=== PATIENT | male | born 1995 | race Caucasian/White ===

== ENCOUNTER 2017-08-02 17:27 | Emergency (ER) | payer MEDICAID ==
[~2017-08-02] VITALS: Ht 162.6 cm; Wt 79.8 kg
[~2017-08-02 17:27] MED LIST: DIVA-68 PO; DIVA500T17 PO; FOLI-17 PO; LAMO100T PO; LAMO200T49 PO; PHEN64.8 PO; PHEN97.2 PO; QUET150T PO; QUET200T PO; QUET400T PO
[2017-08-02 17:30] VITALS: BP 123/71
[2017-08-02] MEDS ORDERED: IBUPROFEN 200 MG TABLET PO ONE (18:30)
== END 2017-08-02 18:25 | disposition home or self-care (01) ==
LOC: ED 18:19
DX: J15.9 Unspecified bacterial pneumonia (principal); J00 Acute nasopharyngitis [common cold]; F32.9 Major depressive disorder, single episode, unspecified
CPT/HCPCS: 71020; 99284

== ENCOUNTER 2018-07-03 15:07 | Inpatient (IN) | payer MEDICAID ==
[~2018-07-03] VITALS: Ht 162.6 cm; Wt 89.5 kg
[~2018-07-03 15:07] MED LIST changes: +DIVA-61 PO; -DIVA-68 PO
[2018-07-03] MEDS ORDERED: VITS A & D OINT 5 GM PKT TP ONE (15:31)
[2018-07-03] MEDS ORDERED: LORA-445 PO (16:05)
[2018-07-03] MEDS ORDERED: ALBU6.7H INH (16:05)
[2018-07-03] MEDS ORDERED: CYAN500T2 PO (16:05)
[2018-07-03] MEDS ORDERED: RISP2TAB3 PO (16:05)
[2018-07-03] MEDS ORDERED: CHOL200024 PO (16:05)
[2018-07-03] MEDS ORDERED: CALC-109 PO (16:05)
[2018-07-03] MEDS ORDERED: CLON1TAB4 PO (16:05)
[2018-07-03] MEDS ORDERED: ONDA4TAB13 SL (16:05)
[2018-07-03] MEDS ORDERED: IBUP-1223 PO (16:05)
[2018-07-03] MEDS ORDERED: CEFTRIAXONE 1,000 MG in SODIUM CHLORIDE 0.9% 50 ML IV ONE (16:30)
[2018-07-03] MEDS ORDERED: SODIUM CHLORIDE FLUSH 10ML SYR IVF ONE (16:30)
[2018-07-03 16:33] LABS: BASOPHILS # (AUTO) 0.03 x10^3/uL (0-0.1); BASOPHILS % (AUTO) 1 % (0-1); EOSINOPHILS # (AUTO) 0.05 x10^3/uL (0-0.4); EOSINOPHILS % (AUTO) 1 % (1-7); LYMPHOCYTES % (AUTO) 24 % (22-44); MD NO; MEAN CORPUSCULAR HEMOGLOBIN 30.9 pg (27.5-34.5); MEAN CORPUSCULAR HGB CONC 34.4 g/dL (33.2-36.2); MEAN CORPUSCULAR VOLUME 89.6 fL (81-97); MEAN PLATELET VOLUME 6.8 fL (7.4-10.4); MONOCYTES # (AUTO) 0.64 x10^3/uL (0.2-0.8); MONOCYTES % (AUTO) 9 % (2-9); NEUTROPHILS # (AUTO) 4.42 x10^3/uL (1.8-6.8); NEUTROPHILS % (AUTO) 66 % (42-75); PLATELET COUNT 232 x10^3/uL (130-400); RED BLOOD COUNT 4.88 x10^6/uL (4.38-5.82); RED CELL DISTRIBUTION WIDTH 13.9 % (9.4-14.8)
[2018-07-03] MEDS ORDERED: CEFTRIAXONE PMX 1GM/50ML 50 ML ONE (16:35)
[2018-07-03 16:46] LABS: ALANINE AMINOTRANSFERASE 24 U/L (12-78); ALBUMIN 3.9 g/dL (3.4-5.0); ANION GAP 7 mmol/L (5-15); CALCIUM 9.1 mg/dL (8.5-10.1); CHLORIDE 103 mmol/L (98-107); CREATININE 1.08 mg/dL (0.7-1.3)
[2018-07-03 16:49] LABS: ALKALINE PHOSPHATASE 54 U/L (45-117); BILIRUBIN,TOTAL 0.3 mg/dL (0.2-1.0); TOTAL PROTEIN 8.3 g/dL (6.4-8.2)
[2018-07-03] MEDS ORDERED: ONDANSETRON 2MG/ML, 2ML IVPush PRN (17:00)
[2018-07-03] MEDS ORDERED: ENALAPRILAT 1.25 MG/ML, 2ML IVPush PRN (17:00)
[2018-07-03] MEDS ORDERED: LABETALOL 5MG/ML, 20ML IVPush PRN (17:00)
[2018-07-03] MEDS ORDERED: TEMPLATE NON-FORMULARY MED. (Ondansetron** (Ondansetron Odt**) 4 MG) SL ONE (17:00)
[2018-07-03] MEDS ORDERED: BISACODYL 10 MG SUPP PR PRN (17:00)
[2018-07-03] MEDS ORDERED: ONDANSETRON ODT 4 MG PO PRN (17:00)
[2018-07-03] MEDS ORDERED: IBUPROFEN 600 MG TABLET PO PRN (17:00)
[2018-07-03] MEDS ORDERED: LORazepam 0.5MG TABLET PO PRN (17:00)
[2018-07-03] MEDS ORDERED: ACETAMINOPHEN 325 MG TABLET PO PRN (17:00)
[2018-07-03 17:53] VITALS: BP 114/73
[2018-07-03] MEDS ORDERED: ONDANSETRON MC SCH (18:00)
[2018-07-03] MEDS ORDERED: ENOXAPARIN 40 MG/0.4 ML SQ SCH (18:00)
[2018-07-03] MEDS ORDERED: LAMO200T49 PO (18:35)
[2018-07-03 19:39] VITALS: BP 121/73
[2018-07-03] MEDS ORDERED: DOCUSATE 100 MG CAPSULE PO PRN (21:00)
[2018-07-03] MEDS ORDERED: QUETIAPINE 100MG TABLET PO SCH (21:00)
[2018-07-03] MEDS: CALCIUM/VITAMIN D3 250-125 TABLET PO SCH (21:01)
[2018-07-03] MEDS ORDERED: DIVALPROEX 500 MG TAB.ER.24H PO SCH (22:00)
[2018-07-04 02:26] VITALS: BP 108/67
[2018-07-04 05:31] LABS: BASOPHILS # (AUTO) 0.02 x10^3/uL (0-0.1); BASOPHILS % (AUTO) 0 % (0-1); EOSINOPHILS # (AUTO) 0.11 x10^3/uL (0-0.4); EOSINOPHILS % (AUTO) 2 % (1-7); LYMPHOCYTES # (AUTO) 2.41 x10^3/uL (1-3.4); LYMPHOCYTES % (AUTO) 38 % (22-44); MD NO; MEAN CORPUSCULAR HEMOGLOBIN 30.5 pg (27.5-34.5); MEAN CORPUSCULAR HGB CONC 34.2 g/dL (33.2-36.2); MEAN CORPUSCULAR VOLUME 89.1 fL (81-97); MEAN PLATELET VOLUME 6.8 fL (7.4-10.4); MONOCYTES # (AUTO) 0.64 x10^3/uL (0.2-0.8); MONOCYTES % (AUTO) 10 % (2-9); NEUTROPHILS # (AUTO) 3.18 x10^3/uL (1.8-6.8); NEUTROPHILS % (AUTO) 50 % (42-75); PLATELET COUNT 218 x10^3/uL (130-400); RED BLOOD COUNT 4.98 x10^6/uL (4.38-5.82); RED CELL DISTRIBUTION WIDTH 13.8 % (9.4-14.8)
[2018-07-04 05:45] LABS: ANION GAP 6 mmol/L (5-15); CALCIUM 8.9 mg/dL (8.5-10.1); CHLORIDE 105 mmol/L (98-107); CREATININE 0.94 mg/dL (0.7-1.3)
[2018-07-04 08:18] VITALS: BP 107/72
[2018-07-04] MEDS ORDERED: CYANOCOBALAMIN 1,000 MCG TABLET PO SCH (09:00)
[2018-07-04] MEDS ORDERED: DIVALPROEX 500 MG TAB.ER.24H PO SCH (09:00)
[2018-07-04] MEDS ORDERED: FOLIC ACID 1 MG TABLET PO SCH (09:00)
[2018-07-04] MEDS ORDERED: RISPERIDONE 2 MG TABLET PO SCH (09:00)
[2018-07-04] MEDS ORDERED: SENNA/DOCUSATE TABLET PO SCH (09:00)
[2018-07-04] MEDS ORDERED: CHOLECALCIFEROL 1,000 UNIT TABLET PO SCH (09:00)
[2018-07-04] MEDS: CALCIUM/VITAMIN D3 250-125 TABLET PO SCH (09:14)
[2018-07-04 15:17] VITALS: BP 116/79
== END 2018-07-04 16:01 | disposition home health service (06) | DRG 603 ==
LOC: ED 15:38 → EDIP 16:35 → 4NOR 17:38
PROVIDERS: ADMIT Hospitalist; ATTEND Hospitalist
DX: L05.91 Pilonidal cyst without abscess (principal); T81.30XA Disruption of wound, unspecified, initial encounter; Y83.8 Other surgical procedures as the cause of abnormal reaction of the patient, or of later complication, without mention of misadventure at the time of the procedure; Y92.89 Other specified places as the place of occurrence of the external cause
CPT/HCPCS: 36415; 76800; 80048; 80053; 83605; 85025; 87040; 99285; J0696; J1650

== ENCOUNTER → 2018-07-11 | Outpatient (CLI) | payer MEDICAID ==
[~2018-07-11] MED LIST changes: +ALBU6.7H INH; +CALC-109 PO; +CHOL200024 PO; +CLON1TAB4 PO; +CYAN500T2 PO; +IBUP-1223 PO; +LORA-445 PO; +ONDA4TAB13 SL; +RISP2TAB3 PO
== END | disposition home or self-care (01) ==
LOC: WOUND 12:52
PROVIDERS: ATTEND Family Medicine
DX: L24.1 Irritant contact dermatitis due to oils and greases (principal); G40.814 Lennox-Gastaut syndrome, intractable, without status epilepticus; G31.84 Mild cognitive impairment of uncertain or unknown etiology
CPT/HCPCS: 99215

== ENCOUNTER → 2018-07-18 | Outpatient (CLI) | payer MEDICAID | END | disposition home or self-care (01) | LOC: WOUND 13:30 | PROVIDERS: ATTEND Family Medicine | DX: L24.1 Irritant contact dermatitis due to oils and greases (principal); G40.814 Lennox-Gastaut syndrome, intractable, without status epilepticus; G31.84 Mild cognitive impairment of uncertain or unknown etiology | CPT/HCPCS: 99214 ==

== ENCOUNTER → 2018-07-25 | Outpatient (CLI) | payer MEDICAID | END | disposition home or self-care (01) | LOC: WOUND 13:11 | PROVIDERS: ATTEND Family Medicine | DX: L24.1 Irritant contact dermatitis due to oils and greases (principal); G40.814 Lennox-Gastaut syndrome, intractable, without status epilepticus; G31.84 Mild cognitive impairment of uncertain or unknown etiology | CPT/HCPCS: 99213 ==

== ENCOUNTER → 2018-07-28 | Outpatient (CLI) | payer MEDICAID ==
[~2018-07-28] MED LIST changes: +CLON1TAB11 PO; -CLON1TAB4 PO
== END | disposition home or self-care (01) ==
LOC: WOUND 14:06
PROVIDERS: ATTEND Internal Medicine Cardiovascular Disease
DX: L24.1 Irritant contact dermatitis due to oils and greases (principal); G40.814 Lennox-Gastaut syndrome, intractable, without status epilepticus; G31.84 Mild cognitive impairment of uncertain or unknown etiology
CPT/HCPCS: 99214

== ENCOUNTER → 2018-07-30 | Outpatient (CLI) | payer MEDICAID ==
[~2018-07-30] MED LIST changes: -CLON1TAB11 PO; +CLON1TAB4 PO
== END | disposition home or self-care (01) ==
LOC: WOUND 15:04
PROVIDERS: ATTEND Internal Medicine
DX: G40.814 Lennox-Gastaut syndrome, intractable, without status epilepticus (principal); L24.1 Irritant contact dermatitis due to oils and greases; G31.84 Mild cognitive impairment of uncertain or unknown etiology
CPT/HCPCS: 99214

== ENCOUNTER → 2018-08-01 | Outpatient (CLI) | payer MEDICAID | END | disposition home or self-care (01) | LOC: WOUND 14:13 | PROVIDERS: ATTEND Family Medicine | DX: T81.89XA Other complications of procedures, not elsewhere classified, initial encounter (principal); G40.814 Lennox-Gastaut syndrome, intractable, without status epilepticus; L24.1 Irritant contact dermatitis due to oils and greases; G31.84 Mild cognitive impairment of uncertain or unknown etiology; Y83.8 Other surgical procedures as the cause of abnormal reaction of the patient, or of later complication, without mention of misadventure at the time of the procedure; Y92.89 Other specified places as the place of occurrence of the external cause | CPT/HCPCS: 99214 ==

== ENCOUNTER 2019-10-16 13:31 | Emergency (ER) | payer MEDICAID ==
[~2019-10-16] VITALS: Ht 167.6 cm; Wt 91.0 kg
[~2019-10-16 13:31] MED LIST changes: -ALBU6.7H INH; +ALBU6.7H8 INH; +CLON1TAB11 PO; -CLON1TAB4 PO; -CYAN500T2 PO; +CYAN500T54 PO; -QUET150T PO; +QUET150T2 PO
--- NOTE | 2019-10-16 13:44 | NUR ---
PT BIB BY [facility] FOR A "9-10 SECOND SEIZURE AT WORK". COWORKERS SAW THE SEIZURE. PT HAS HX OF SEIZURES AND PT STATED HE TAKES HIS MEDICATION FOR IT. PT IS [id number]. RESTING IN HOSPITAL BED. AWAITING DOCTOR. CALL LIGHT WITHIN REACH
--- NOTE | 2019-10-16 14:04 | NUR ---
COWORKER SHOWED UP TO ER STATING THAT THE SEIZURE WAS ACTUALLY "4-5 MINUTES LONG"
[2019-10-16 14:38] VITALS: BP 139/77
--- NOTE | 2019-10-16 14:41 | NUR ---
TASK RN: FIRST CONTACT WITH PT. Patient and caregiver given discharge instructions and they have confirmed that they understand the instructions. Patient ambulatory with steady gait. Pt and caregiver left with all personal belongings and d/c paperwork.
== END 2019-10-16 14:53 | disposition home or self-care (01) ==
LOC: ED 14:45
DX: G40.419 Other generalized epilepsy and epileptic syndromes, intractable, without status epilepticus (principal)
CPT/HCPCS: 93005; 99283

== ENCOUNTER 2021-06-24 20:46 | Emergency (ER) | payer MEDICAID ==
[~2021-06-24] VITALS: Ht 170.2 cm; Wt 105.3 kg
[~2021-06-24 20:46] MED LIST changes: -CYAN500T54 PO; +CYAN500T7 PO; -FOLI-17 PO; +FOLI1TAB32 PO; -LAMO100T PO; +LAMO100T8 PO; -RISP2TAB3 PO; +RISP2TAB80 PO
--- NOTE | 2021-06-24 22:13 | NUR ---
PT MERCEDES FROM A [facility], PT HAS A HISTORY OF SEIZURES AND HAS A VAGUS NERVE STIMULATOR ON THE LEFT SIDE OF HIS CHEST TO HELP CONTROL SEIZURES, EMS STATES THAT PT HAD A SLIGHT RASH ON HIS CHEST BEFORE TAKING A SHOWER THEN PT TOOK A SHOWER AND THEN WHEN HE CAME OUT OF THE SHOWER HE HAD A SEIZURE AND THEN THE REDNESS AND RASH ON HIS CHEST BECAME WORSE, PT HAS DEVELOPMENTAL DELAYS, MOTHER/LEGAL GUARDIAN AT BEDSIDE, [facility] STAFF THAT TAKES CARE OF PT AT BEDSIDE WELL
--- NOTE | 2021-06-24 22:22 | NUR ---
MD AT BEDSIDE TO DISCUSS POC
[2021-06-24 22:51] LABS: BASOPHILS % (AUTO) 1 % (0-1); EOSINOPHILS % (AUTO) 1 % (1-7); LYMPHOCYTES % (AUTO) 24 % (22-44); MEAN CORPUSCULAR HEMOGLOBIN 29.5 pg (27.5-34.5); MEAN CORPUSCULAR HGB CONC 34.8 g/dL (33.2-36.2); MEAN PLATELET VOLUME 6.6 fL (7.4-10.4); MONOCYTES % (AUTO) 12 % (2-9); NEUTROPHILS % (AUTO) 63 % (42-75); PLATELET COUNT 251 x10^3/uL (130-400); RED BLOOD COUNT 4.87 x10^6/uL (4.38-5.82)
[2021-06-24 23:00] LABS: ALANINE AMINOTRANSFERASE 26 U/L (12-78); ALBUMIN 3.6 g/dL (3.4-5.0); ANION GAP 9 mmol/L (5-15); CALCIUM 9.4 mg/dL (8.5-10.1); CHLORIDE 97 mmol/L (98-107); CREATININE 0.78 mg/dL (0.7-1.3)
[2021-06-24 23:02] LABS: ALKALINE PHOSPHATASE 49 U/L (45-117); BILIRUBIN,TOTAL 0.4 mg/dL (0.2-1.0); TOTAL PROTEIN 7.7 g/dL (6.4-8.2)
--- NOTE | 2021-06-24 23:35 | NUR ---
PT LAYING IN BED, ALL NEEDS IN REACH, CALL LIGHT IN REACH, NAD AT THIS TIME, LEGAL GUARDIAN AND ALF STAFF AT BEDSIDE
[2021-06-24] MEDS ORDERED: NEOSPORIN OINT. PKT 1 PACKET ONE (23:55)
[2021-06-24] MEDS ORDERED: CEPHALEXIN 500 MG CAPSULE ONE (23:55)
[2021-06-25] MEDS ORDERED: CEPHALEXIN 500 MG CAPSULE PO ONE
[2021-06-25 00:29] VITALS: BP 136/65
--- NOTE | 2021-06-25 00:31 | NUR ---
THIS RN APPLIED BACITRACIN TO PTS AFFECTED SITE AND DRESSED IT WITH GAUZE AND SECURED IT WITH SILK TAPE, PT DISCHARGED WITH SCRIPT FOR ANTIBIOTICS, CAREGIVER UNDERSTANDS POC
== END 2021-06-25 00:34 | disposition home or self-care (01) ==
LOC: ED 23:00
DX: G40.909 Epilepsy, unspecified, not intractable, without status epilepticus (principal); L03.313 Cellulitis of chest wall
CPT/HCPCS: 36415; 71045; 80053; 80164; 85025; 93005; 99285